=== PATIENT | female | born 2000 | race Asian ===

== ENCOUNTER 2023-03-14 17:58 | Outpatient (CLI) | payer BC, SELFPAY | END 2023-03-14 17:59 | disposition home or self-care (01) | LOC: NFLDREF 03-17 09:10 | PROVIDERS: PCP Emergency Medicine; Referring Provider Emergency Medicine; Visit Provider Physician Assistant | DX: R30.0 Dysuria (principal); N12 Tubulo-interstitial nephritis, not specified as acute or chronic | CPT/HCPCS: 87086; 87186 ==

== ENCOUNTER 2023-03-19 14:44 | Outpatient (CLI) | payer BC, SELFPAY | END 2023-03-19 14:45 | disposition home or self-care (01) | PROVIDERS: PCP Emergency Medicine; Visit Provider Emergency Medicine | DX: N92.0 Excessive and frequent menstruation with regular cycle (principal); Q60.2 Renal agenesis, unspecified; Z01.84 Encounter for antibody response examination | CPT/HCPCS: 80048; 82728; 84443; 86706 ==

== ENCOUNTER 2023-03-25 13:48 | Outpatient (CLI) | payer BC, SELFPAY ==
--- NOTE | 2023-03-25 14:00 | CRLHL7_ITS ---
For Patients: As a result of the Century Cures Act, medical imaging exams and procedure reports are released immediately into your electronic medical record. You may view this report before your referring provider. If you have questions, please contact your health care provider. INDICATION: Dysmenorrhea COMPARISON: none TECHNIQUE: 2D meza scale and color Doppler images were acquired of the pelvis using a transabdominal and transvaginal approach. FINDINGS: Uterine didelphys. Right uterine tissue measures 9.8 x 3.7 x 4.4 cm with the endometrium measuring 1.3 cm. Left uterine tissue measures 8.3 x 3.9 x 3.3 cm with the endometrium measuring 1.2 cm. No uterine fibroid. The right ovary measures 4.3 x 2.8 x 2.8 cm in size and the left ovary measures 3.5 x 1.6 x 1.8 cm. Small hemorrhagic cyst measuring 2.1 cm right ovary. The ovaries demonstrate normal arterial and venous blood flow on color Doppler analysis. There are no suspicious fluid collections within the cul-de-sac. Trace physiologic free fluid. IMPRESSION: Uterine didelphys. The endometrium measures 1.3 cm on the right and 1.2 cm on the left. Dictated by Paddy Graham MD @ 03/25/2023 3:34:11 PM (Electronically Signed)
== END 2023-03-25 13:49 | disposition home or self-care (01) ==
LOC: US 13:49
PROVIDERS: PCP Emergency Medicine; Visit Provider Emergency Medicine
DX: N94.6 Dysmenorrhea, unspecified (principal); N92.0 Excessive and frequent menstruation with regular cycle; R93.89 Abnormal findings on diagnostic imaging of other specified body structures
CPT/HCPCS: 76830; 76856; 93976